=== PATIENT | male | born 1990 | race Caucasian/White ===

== ENCOUNTER 2016-09-24 10:56 | Emergency (ER) | payer BC, OTHER ==
[2016-09-24 11:11] VITALS: TEMP 97.5
--- NOTE | 2016-09-24 11:37 | CPEKG ---
Heart Rate: 88 RR Interval: 682 P-R Interval: 148 QRSD Interval: 96 QT Interval: 376 QTC Interval: 455 P Beulah: 69 QRS Beulah: -71 T Wave Beulah: 68 EKG Severity - ABNORMAL ECG - EKG Impression: SINUS RHYTHM EKG Impression: LEFT ANTERIOR FASCICULAR BLOCK EKG Impression: Early right bundle branch block Electronically Signed By: Blanco Patel 24-Sep-2016 12:10:57
--- NOTE | 2016-09-24 12:11 | EDPHY ---
H & P Stated Complaint: l arm pain 2 hrs last night/cocaine last week Time Seen by Provider: 09/24/16 12:08 HPI/ROS: CHIEF COMPLAINT: left arm pain for 2 hours last night HISTORY OF PRESENT ILLNESS: 25-year-old male presents emergency department complaining left arm pain that lasted 2 hours last night. Patient reports he was lying on the couch and developed a ache in his left upper arm below the shoulder, above elbow. This was mild, not worse with movement. No numbness or tingling, no swelling, no trauma. Patient reports he used cocaine day night , snorted it. He denies chest pain, shortness of breath, dizziness, lightheadedness. He has had no pain in this arm today. No recent injury to this arm. REVIEW OF SYSTEMS: A comprehensive 10 point review of systems is otherwise negative aside from elements mentioned in the history of present illness. Source: Patient Exam Limitations: No limitations - Personal History Current Tetanus/Diphtheria Vaccine: Unsure - Medical/Surgical History Hx Asthma: No Hx Chronic Respiratory Disease: No Hx Diabetes: No Hx Cardiac Disease: No Hx Renal Disease: No Hx Cirrhosis: No Hx Alcoholism: No Hx HIV/AIDS: No Hx Splenectomy or Spleen Trauma: No Other PMH: PMH: MIGRAINES. PSH: NONE - Social History Smoking Status: Current some day smoker Alcohol Use: Occasionally Drug Use: Cocaine, Marijuana - Physical Exam Exam: Physical Exam Gen: Alert and Oriented, NAD HEENT: PERRL, moist mucous membranes NECK: no meningismus, no JVD CV: regular rate and regular rhythm PULM: CTAB, no wheezes ABDOMEN: soft, non tender to palpation, BS present BACK: No CVA tenderness NEURO: Neurologically grossly intact EXTREMITIES: normal appearing, 2+ pulses bilaterally upper extremities, left arm with full range of motion, no swelling, tenderness to palpation. SKIN: no rash or break in skin on exposed skin PSYCH: answers questions appropriately. Constitutional: Initial Vital Signs Temperature (C) 36.4 C 09/24/16 11:08 Heart Rate 76 09/24/16 11:08 Respiratory Rate 18 09/24/16 11:08 Blood Pressure 145/87 H 09/24/16 11:08 O2 Sat (%) 95 09/24/16 11:08 O2 Delivery Mode Room Air Allergies/Adverse Reactions: No Known Allergies Allergy (Verified 09/24/16 11:07) Home Medications: Medication Instructions Recorded NK [No Known Home Meds] 09/24/16 Medical Decision Making - Diagnostics EKG Interpretation: EKG shows sinus rhythm, rate 88 left deviation good R-wave progression left anterior fascicular no ST or T-wave abnormalities. No EKG for comparison. ED Course/Re-evaluation: 25-year-old male presents emergency department concerned about a left upper arm pain that he had yesterday for 2 hours. He has no continued pain, no trauma, no fevers. He has a normal exam. Patient did cocaine 2 days ago. EKG shows normal sinus rhythm, left anterior fascicular block. He has no other associated symptoms with this left arm pain, no chest pain, shortness of breath , dizziness, lightheadedness. Patient will be discharged. He has been given a referral for a primary care doctor to follow up with and I have recommended he follow up [facility] to establish care with a therapist as he reported he thought this would be beneficial. Patient has no suicidal thoughts , homicidal thoughts, auditory or visual hallucinations. Differential Diagnosis: Diagnosis considered but not limited to musculoskeletal pain, strain, DVT, cellulitis, acute coronary syndrome Departure - Departure Disposition: Home, Routine, Self-Care Clinical Impression: Left upper arm pain Condition: Good Instructions: Arm Pain (ED) Additional Instructions: Return to the emergency department for any new symptoms, questions or concerns. Follow up the primary care doctor listed who is on-call to establish care. I have also referred to [facility] to establish care with a therapist. Stop using cocaine. Referrals: Sagar Bains MD [Medical Doctor] - As per Instructions (Primary care doctor on -call) [facility] [Outside] - As per Instructions
[2016-09-24 12:49] VITALS: BP 141/90; PULSE 74; RESP 16; O2SAT 94
== END 2016-09-24 12:49 | disposition home or self-care (01) ==
DX: M79.602 Pain in left arm (principal); F17.200 Nicotine dependence, unspecified, uncomplicated